=== PATIENT | male | born 1965 | race Caucasian/White ===

== ENCOUNTER 2018-01-11 00:05 | Inpatient (IN) | payer MEDICAID, OTHER ==
[~2018-01-11] VITALS: Ht 167.6 cm; Wt 72.1 kg
[2018-01-11] MEDS ORDERED: TETANUS, DIPHTHERIA, PERTUSSIS VAC/PF 0.5ML (>7YR OLD) IM ONE (01:00)
[2018-01-11 01:34] LABS: BASOPHILS % 0.4 % (0.0-2.0); EOSINOPHILS % 1.3 % (0.0-5.0); HEMATOCRIT. 38.7 % (42.0-52.0); HEMOGLOBIN. 13.7 g/dL (14.0-18.0); LYMPHOCYTES % 17.2 % (20.0-50.0); MEAN CORPUSCULAR HEMOGLOBIN 30.4 pg (28.0-32.0); MEAN PLATELET VOLUME 7.9 fl (7.4-10.4); MONOCYTES % 8.7 % (2.0-8.0); NEUTROPHILS % 72.4 % (40.0-76.0); PLATELET 265 x1000/uL (130-400); RED CELL DISTRIBUTION WIDTH 13.1 % (11.6-14.6)
[2018-01-11 01:44] LABS: CHLORIDE 105 mEq/L (98-107)
[2018-01-11] MEDS ORDERED: ASPIRIN 325MG TABLET PO ONE (03:15)
[2018-01-11 03:32] LABS: PARTIAL THROMBOPLASTIN TIME 25.9 sec (23.4-31.0)
[2018-01-11] MEDS ORDERED: ONDANSETRON HCL 4MG/2ML INJ IV PRN (12:30)
[2018-01-11] MEDS ORDERED: ACETAMINOPHEN 325MG TABLET PO PRN (12:30)
[2018-01-11] MEDS ORDERED: DEXTROSE 50% WATER 50ML SYRINGE IV PRN (12:30)
[2018-01-11] MEDS: BLOOD SUGAR DIAGNOSTIC STRIP TEST SCH ×2 (13:00→21:00)
[2018-01-11 13:36] LABS: CREATINE KINASE MB FRACTION 4.8 ng/mL (0.5-3.6)
[2018-01-11] MEDS: ENOXAPARIN 40MG/0.4ML SYR SUBCUT SCH (14:30)
[2018-01-11 18:55] VITALS: BP 138/87
[2018-01-11 20:00] VITALS: BP_SYST 109; BP_SYST 138; BP_DIAS 64; BP_DIAS 87
[2018-01-11] MEDS ORDERED: METOPROLOL TARTRATE 25MG TABLET PO SCH (21:00)
[2018-01-11] MEDS: INSULIN LISPRO 100 UNITS/ML SUBCUT SCH ×2 (21:06→21:10)
[2018-01-11] MEDS ORDERED: GLIM4TAB2 MT (21:19)
[2018-01-11] MEDS ORDERED: SIMV40TA5 MT (21:19)
[2018-01-11] MEDS ORDERED: ASPI-1158 MT (21:19)
[2018-01-11] MEDS ORDERED: METF-414 MT (21:19)
[2018-01-11] MEDS: INSULIN GLARGINE UD 100 UNITS/ML SYR SUBCUT SCH (21:25)
[2018-01-12] VITALS: BP 114/69
[2018-01-12 04:00] VITALS: BP 133/79
[2018-01-12] MEDS: BLOOD SUGAR DIAGNOSTIC STRIP TEST SCH ×4 (05:47→20:25)
[2018-01-12] MEDS: INSULIN LISPRO 100 UNITS/ML SUBCUT SCH ×4 (06:00→20:37)
[2018-01-12 08:00] VITALS: BP 98/61
[2018-01-12] MEDS: ASPIRIN 81MG TABLET PO SCH (08:38)
[2018-01-12] MEDS: ENOXAPARIN 40MG/0.4ML SYR SUBCUT SCH (08:39)
[2018-01-12] MEDS ORDERED: INFLUENZA VIRUS VACCINE(AFLURIA) 0.5ML SYR IM ONE (09:00)
[2018-01-12] MEDS ORDERED: PNEUMOCOCCAL 23-VAL P-SAC VAC 0.5 ML IM ONE (09:00)
[2018-01-12 10:16] LABS: BASOPHILS % 0.3 % (0.0-2.0); EOSINOPHILS % 1.2 % (0.0-5.0); HEMATOCRIT. 39.4 % (42.0-52.0); HEMOGLOBIN. 13.4 g/dL (14.0-18.0); LYMPHOCYTES % 27.9 % (20.0-50.0); MEAN CORPUSCULAR HEMOGLOBIN 29.8 pg (28.0-32.0); MEAN CORPUSCULAR VOLUME 87.4 fL (80.0-94.0); MEAN PLATELET VOLUME 8.4 fl (7.4-10.4); MONOCYTES % 8.8 % (2.0-8.0); NEUTROPHILS % 61.8 % (40.0-76.0); PLATELET 263 x1000/uL (130-400); RED BLOOD CELL COUNT 4.51 mill/uL (4.7-6.1); RED CELL DISTRIBUTION WIDTH 13.6 % (11.6-14.6)
[2018-01-12] MEDS: INSULIN GLARGINE UD 100 UNITS/ML SYR SUBCUT SCH (10:52)
[2018-01-12 12:00] VITALS: BP 101/66
[2018-01-12 16:00] VITALS: BP 107/64
[2018-01-12 20:00] VITALS: BP_SYST 107; BP_SYST 145; BP_SYST 60; BP_DIAS 33; BP_DIAS 63; BP_DIAS 84
[2018-01-12] MEDS: FAMOTIDINE 20MG TABLET PO SCH (20:32)
[2018-01-12] MEDS: METOPROLOL TARTRATE 25MG TABLET PO SCH (20:32)
[2018-01-13] VITALS (7 sets, daily range): BP systolic 118–172; BP diastolic 58–94
[2018-01-13] MEDS: INSULIN GLARGINE UD 100 UNITS/ML SYR SUBCUT SCH ×2 (02:25→09:18)
[2018-01-13] MEDS: BLOOD SUGAR DIAGNOSTIC STRIP TEST SCH ×3 (06:27→17:10)
[2018-01-13] MEDS: INSULIN LISPRO 100 UNITS/ML SUBCUT SCH ×3 (06:34→17:40)
[2018-01-13] MEDS: ENOXAPARIN 40MG/0.4ML SYR SUBCUT SCH (09:17)
[2018-01-13] MEDS: METOPROLOL TARTRATE 25MG TABLET PO SCH (09:17)
[2018-01-13] MEDS: FAMOTIDINE 20MG TABLET PO SCH (09:17)
[2018-01-13] MEDS: ASPIRIN 81MG TABLET PO SCH (09:17)
[2018-01-13 09:57] LABS: BASOPHILS % 0.2 % (0.0-2.0); EOSINOPHILS % 3.1 % (0.0-5.0); HEMATOCRIT. 37.6 % (42.0-52.0); HEMOGLOBIN. 12.7 g/dL (14.0-18.0); LYMPHOCYTES % 28.4 % (20.0-50.0); MEAN CORPUSCULAR HEMOGLOBIN 29.7 pg (28.0-32.0); MEAN CORPUSCULAR VOLUME 87.9 fL (80.0-94.0); MEAN PLATELET VOLUME 8.7 fl (7.4-10.4); MONOCYTES % 7.1 % (2.0-8.0); NEUTROPHILS % 61.2 % (40.0-76.0); PLATELET 263 x1000/uL (130-400); RED BLOOD CELL COUNT 4.28 mill/uL (4.7-6.1); RED CELL DISTRIBUTION WIDTH 13.5 % (11.6-14.6)
[2018-01-13 12:04] LABS: CHLORIDE 111 mEq/L (98-107)
[2018-01-13] MEDS ORDERED: DILTIAZEM HCL 30MG TABLET PO SCH (18:00)
[2018-01-15 04:08] LABS: OVA & PARASITE EXAM Final report (.)
[2018-01-16 13:06] LABS: SACCHAROMYCES CEREVISIAE IGG <20.0 Units (0.0-24.9); SACCHAROMYCES CEREVISIAE IGM 39.9 Units (0.0-24.9)
[2018-01-16 15:10] LABS: ATYPICAL pANCA <1:20 titer (Neg:<1:20)
== END 2018-01-13 17:58 | disposition home or self-care (01) | DRG 48 ==
LOC: ER 01:48 → 8WST 03:24 → ENRESERV 17:56
PROVIDERS: ADMIT Internal Medicine Nephrology; ATTEND Internal Medicine Nephrology
DX: G90.8 Other disorders of autonomic nervous system (principal); N17.9 Acute kidney failure, unspecified; E44.0 Moderate protein-calorie malnutrition; E11.22 Type 2 diabetes mellitus with diabetic chronic kidney disease; E78.1 Pure hyperglyceridemia; R19.7 Diarrhea, unspecified; E78.5 Hyperlipidemia, unspecified; I13.0 Hypertensive heart and chronic kidney disease with heart failure and stage 1 through stage 4 chronic kidney disease, or unspecified chronic kidney disease; I50.32 Chronic diastolic (congestive) heart failure; N18.2 Chronic kidney disease, stage 2 (mild); Z79.84 Long term (current) use of oral hypoglycemic drugs; Z68.25 Body mass index [BMI] 25.0-25.9, adult
CPT/HCPCS: 36415; 70486; 70551; 71045; 80048; 80061; 82550; 82553; 82962; 83036; 84443; 84484; 86256; 86671; 87015; 87045; 87177; 87209; 87427; 87449; 87493; 90471; 90686; 90715; 90732; 93005; 93306; 93880; 93970; 99285; C1893; J1650; J1815; J2405